=== PATIENT | male | born 1960 | race Caucasian/White ===

== ENCOUNTER 2025-06-02 22:02 | Emergency (ER) | payer OTHER ==
[~2025-06-02] VITALS: Ht 170.2 cm; Wt 77.1 kg
[2025-06-02 22:06] VITALS: BP 141/77; O2SAT 95
== END 2025-06-02 22:40 | disposition left against medical advice (07) ==
LOC: ER 22:02
DX: I10 Essential (primary) hypertension (principal); E11.9 Type 2 diabetes mellitus without complications; F17.200 Nicotine dependence, unspecified, uncomplicated; Z88.7 Allergy status to serum and vaccine
CPT/HCPCS: A4606; A4663